=== PATIENT | female | born 1970 | race Caucasian/White ===

== ENCOUNTER 2018-05-08 22:06 | Observation (INO) | payer SELFPAY ==
[2018-05-08 22:44] VITALS: RESP 18
[2018-05-08] MEDS ORDERED: FOLIC ACID 1 MG TAB PO ONE (22:50)
[2018-05-08] MEDS ORDERED: MAGNESIUM SULFATE 1 GM/2 ML SOL IV ONE (22:50)
[2018-05-08] MEDS ORDERED: THIAMINE 100 MG TAB PO ONE (22:50)
[2018-05-08 23:10] LABS: BASOPHILS % (AUTO) 2 % (0-3); EOSINOPHILS % (AUTO) 5 % (0-9); HEMATOCRIT 36 % (35-47); HEMOGLOBIN 11.2 gm/dl (12.0-15.5); MEAN CORPUSCULAR HEMOGLOBIN 23.5 pg (27.0-32.0); MEAN CORPUSCULAR HGB CONC 30.6 gm/dl (32.0-36.0); MONOCYTES % (AUTO) 8.1 % (0-12); NEUTROPHILS % (AUTO) 50.2 % (37-80)
[2018-05-08] MEDS ORDERED: FOLIC ACID 1 MG TAB ONE (23:21)
[2018-05-08] MEDS ORDERED: THIAMINE 100 MG TAB ONE (23:21)
[2018-05-08] MEDS ORDERED: SODIUM CHLORIDE 0.9% 1000ML 1,000 ML IV ONE (23:23)
[2018-05-08 23:24] LABS: HYPOCHROMASIA PRESENT; MEAN CORPUSCULAR VOLUME 77 fL (81-99)
[2018-05-08] MEDS ORDERED: SODIUM CHLORIDE 0.9% FLUSH 10 ML SOL IV PRN (23:24)
[2018-05-08 23:25] LABS: ANISOCYTOSIS MOD AMT; POIKILOCYTOSIS SLIGHT AMT; TARGET CELLS PRESENT
[2018-05-08 23:34] LABS: ALBUMIN 3.3 gm/dl (3.4-5.0); BILIRUBIN,TOTAL 0.2 mg/dl (0.2-1.0); CALCIUM 9.3 mg/dl (8.5-10.1); CREATININE 0.66 mg/dl (0.60-1.00); POTASSIUM 3.3 mMol/L (3.5-5.1); THYROID STIMULATING HORMONE 6.053 uIU/ml (0.358-3.740); TOTAL PROTEIN 7.2 gm/dl (6.4-8.2)
[2018-05-08 23:48] LABS: APPEARANCE,URINE Clear; BILIRUBIN,URINE NEGATIVE (NEGATIVE); COLOR,URINE Yellow; GLUCOSE, URINE (UA) NEGATIVE (NEGATIVE); KETONES,URINE NEGATIVE (NEGATIVE); LEUKOCYTE ESTERASE ,URINE 1+ (NEGATIVE); NITRATE,URINE POSITIVE (NEGATIVE); OCCULT BLOOD,URINE 3+ (NEG-TRACE); UROBILINOGEN,URINE 0.2 (0.2-1.0 EU)
[2018-05-08 23:50] LABS: ALCOHOL 0.279 gm/dl (0.000-0.08)
[2018-05-08] MEDS ORDERED: POTASSIUM CHLORIDE 10 MEQ TER PO ONE (23:57)
[2018-05-09 00:06] LABS: BACTERIA 3+ WITH TRICH NOTED (< 1+); CRYSTALS NEGATIVE (0-3 AVE/HPF); RBC,URINE 0-2 (0-3AV/HPF)
[2018-05-09 00:07] LABS: AMPHETAMINES NEGATIVE (NEGATIVE); BARBITUATES NEGATIVE (NEGATIVE); BENZODIAZEPINES NEGATIVE (NEGATIVE); CANNABINOL(THC) NEGATIVE (NEGATIVE); COCAINE(COC) NEGATIVE (NEGATIVE); METHADONE NEGATIVE (NEGATIVE); METHAMPHETAMINES NEGATIVE (NEGATIVE); OPIATES(OPI) NEGATIVE (NEGATIVE); OXYCODONE(OXY) NEGATIVE (NEGATIVE); PROPOXYPHENE(PPX) NEGATIVE (NEGATIVE); TRICYCLIC ANTIDEPRESSANTS NEGATIVE (NEGATIVE)
[2018-05-09] MEDS ORDERED: POTASSIUM CHLORIDE 10 MEQ TER ONE (00:20)
[2018-05-09] MEDS ORDERED: MAGNESIUM SULFATE 1 GM/2 ML SOL IV ONE (00:35)
[2018-05-09] MEDS ORDERED: SODIUM CHLORIDE 0.9% 1000ML 1,000 ML IV SCH (00:45)
[2018-05-09] MEDS ORDERED: CIPROFLOXACIN HCL 500 MG TAB PO SCH (00:45)
[2018-05-09] MEDS ORDERED: MAGNESIUM SULFATE 5 GM/10 ML SOL ONE (01:25)
[2018-05-09 08:35] VITALS: BP 146/78; PULSE 71; TEMP 98; O2SAT 98
== END 2018-05-09 10:25 | disposition home or self-care (01) | DRG 897 ==
LOC: ED 22:06 → ACUTE CARE 05-09 00:29
PROVIDERS: ADMIT Family Medicine; ATTEND Family Medicine
DX: F10.920 Alcohol use, unspecified with intoxication, uncomplicated (principal); N30.00 Acute cystitis without hematuria; F32.9 Major depressive disorder, single episode, unspecified; Y90.8 Blood alcohol level of 240 mg/100 ml or more
CPT/HCPCS: 80053; 80305; 80307; 81001; 84443; 85025; 99070; 99284; J3475; A9270-GY